=== PATIENT | female | born 1950 | race Caucasian/White ===

== ENCOUNTER 2017-07-16 08:20 | Emergency (ER) | payer OTHER ==
--- NOTE | 2017-07-16 08:25 | PDOC ---
History of Present Illness - General Stated Complaint: DIFFICULTY BREATHING History Source: Patient - History of Present Illness Initial Comments: 07/16/17 08:46 67 y.o. female with a PMH of NIDDM, HLD presents to our ED c/o acute onset of non-productive cough with pleuritic chest pain that sometime radiates to her L arm that started @ 2 a.m. this morning. Patient denies any shortness of breath , lightheadedness, palpitations or diaphoresis. Patient notes she also has alternating chills/feeling warm but denies any recorded fever, chills. Patient was evaluated by her PMD in April 2017 for a similar cough at which time she was started on an inhaler with some relief of her cough. NKDA Surgical: C/S Social: denies cigarettes, denies alcohol, denies recreational drugs Past History - Past Medical History Allergies/Adverse Reactions: Allergies Allergy/AdvReac Type Severity Reaction Status Date / Time No Known Allergies Allergy Verified 01/05/16 12:28 Home Medications: Ambulatory Orders Albuterol Sulfate Inhaler - [Ventolin Hfa Inhaler -] 1 - 2 inh PO Q6H 07/16/17 Calcium 250Mg/Vit-D 125 Units [Oscal 250 mg+D -] 1 combo PO BID 07/16/17 Codeine Phosphate/Guaifenesin [Guaifenesin-Codeine Syrup] 10 ml PO DAILY PRN 7 Days #1 liquid MDD 10 mL 07/16/17 Cyanocobalamin [Vitamin B12 -] 1,000 mcg PO DAILY 07/16/17 Doxepin HCl 100 mg PO HS 07/16/17 Escitalopram Oxalate [Lexapro -] 10 mg PO DAILY 07/16/17 Ferrous Sulfate 325 mg PO DAILY 07/16/17 Gabapentin 300 mg PO TID PRN 07/16/17 Guaifenesin 100 mg PO DAILY PRN #1 liquid 07/16/17 Lisinopril 10 mg PO DAILY 07/16/17 Meclizine HCl 12.5 mg PO HS 07/16/17 Metformin HCl [Metformin HCl ER] 1,000 mg PO BID 07/16/17 Montelukast Sodium [Singulair] 10 mg PO HS 07/16/17 Multivitamin [Daily Multiple Vitamin] 1 each PO DAILY 07/16/17 Pregabalin [Lyrica -] 50 mg PO TID 07/16/17 Ranitidine HCl [Zantac] 150 mg PO HS 07/16/17 Simvastatin 20 mg PO DAILY 07/16/17 Diabetes: Yes GI Disorders: Yes (dispepsia, GERD) HTN: Yes Hypercholesterolemia: Yes Psychiatric Problems: Yes (sleep disorder, anxiety, depression) - Immunization History Immunization Up to Date: Yes - Suicide/Smoking/Psychosocial Hx Smoking Status: No Smoking History: Never smoked Number of Cigarettes Smoked Daily: 0 Review of Systems - Review of Systems Constitutional: Yes: Chills. No: Fever HEENTM: No: Recent change in vision, Throat Pain Respiratory: Yes: Cough (non-productive). No: Shortness of Breath Cardiac (ROS): Yes: Chest Tightness. No: Lightheadedness, Palpitations ABD/GI: No: Constipated, Diarrhea, Nausea, Vomiting : No: Burning, Dysuria *Physical Exam - Physical Exam General Appearance: Yes: Nourished, Appropriately Dressed HEENT: positive: EOMI, CANDY Neck: positive: Trachea midline, Supple Respiratory/Chest: positive: Lungs Clear, Normal Breath Sounds Cardiovascular: positive: S1, S2. negative: Edema, JVD, Murmur Gastrointestinal/Abdominal: positive: Normal Bowel Sounds, Soft Musculoskeletal: negative: CVA Tenderness (R) Extremity: positive: Normal Capillary Refill, Normal Inspection Integumentary: positive: Normal Color, Dry, Warm Neurologic: positive: Fully Oriented, Alert ED Treatment Course - LABORATORY CBC & Chemistry Diagram: 07/16/17 08:45 07/16/17 08:45 Medical Decision Making - Medical Decision Making 07/16/17 08:50 67 y/o female with NIDDM and HLD who presents w/chest pain and cough. On presentation patient SpO2 98% on RA -- In light of patient's h/o DM + HLD, will obtain Troponin x1, CXR, EKG. Differential includes pneumonia vs. viral etiology -- less likely ACS, however patient has RF of NIDDM and HLD. 07/16/17 10:31 Troponin (-) x1. EKG shows NSR HR 70, no deviations, normal axis - no ischemic EKG. Heart Score 3. CXR shows no infiltrate, consolidation, cardiomegaly. Likely cough 2/2 viral etiology. Will discharge home with return precautions and strict instruction to see PMD on Tuesday *DC/Admit/Observation/Transfer Diagnosis at time of Disposition: Cough - Discharge Dispostion Disposition: HOME Condition at time of disposition: Good Admit: No - Prescriptions Prescriptions: Codeine Phosphate/Guaifenesin [Guaifenesin-Codeine Syrup] 10 ml PO DAILY PRN 7 Days #1 liquid MDD 10 mL PRN Reason: Cough Guaifenesin 100 mg PO DAILY PRN #1 liquid PRN Reason: Cough - Referrals - Patient Instructions Printed Discharge Instructions: How to Avoid a Cold or Flu Additional Instructions: You evaluated today for a cough and chest pain. All of your labs and chest x ray showed no concerning findings. We have sent a prescription to your pharmacy to help with your cough -- take the medication at night as needed. Please follow-up with your primary care doctor in the next 48 hours. Return to the Emergency Department for any new/worsening/concerning symptoms. Print Language: SWISS - Post Discharge Activity
--- NOTE | 2017-07-16 08:46 | PDOC ---
Attending Attestation - Resident Resident Name: BrandoMalaika - HPI HPI: 07/16/17 09:37 Pt presents to the ED complaining of pleuritic chest pain that began at 3:30 this morning. Patient has a week of cough that was worse last night. Now is complaining of L sided chest pain and upper back pain that is worse with cough, but is constant. Also complains of mild shortness of breath. - Physicial Exam PE: 07/16/17 09:55 Agree with resident exam. Heart has regular rate and rhythm with no murmurs, rubs or gallops. Lungs are clear. Patient is well appearing and in no acute distress. - Medical Decision Making 07/16/17 10:01 Pt presents to the ED complaining of pleuritic chest pain after coughing early this AM. Differential includes PNA, muscular chest pain, ACS. Will check CXR and labs including cardiac enzymes and reassess. EKg shows no evidence of acute ischemia.
[2017-07-16 09:05] LABS: BASO % 1.1 % (0-2.0); EOS % 10.5 % (0-4.5); HEMATOCRIT 38.7 % (32.4-45.2); LYMPH % 26.9 % (8-40); MCH 30.2 pg (25.7-33.7); MCHC 33.6 g/dl (32.0-36.0); MEAN CELL VOLUME 90.1 fl (80-96); MEAN PLT VOLUME 9.3 fl (7.5-11.1); MONO % 6.2 % (3.8-10.2); NEUT % 55.3 % (42.8-82.8); PLATELET COUNT 245 K/MM3 (134-434); RDW 13.4 % (11.6-15.6)
[2017-07-16 09:11] VITALS: BMI 26.4
[2017-07-16 09:33] LABS: ALBUMIN 3.6 g/dl (3.4-5.0); ANION GAP 9 (8-16); BILIRUBIN,TOTAL 0.3 mg/dL (0.2-1.0); BLOOD UREA NITROGEN 12 mg/dL (7-18); CALCIUM 8.8 mg/dL (8.5-10.1); CHLORIDE 104 mmol/L (98-107); CO2 26 mmol/L (21-32); CREATININE 0.6 mg/dL (0.55-1.02); GLUCOSE,RANDOM 166 mg/dL (74-106); MAGNESIUM 1.8 mg/dL (1.8-2.4); POTASSIUM 3.9 mmol/L (3.5-5.1); SGOT/AST 19 U/L (15-37); SGPT/ALT 28 U/L (12-78); SODIUM 139 mmol/L (136-145); TOT PROT 6.8 g/dl (6.4-8.2)
[2017-07-16 09:36] LABS: ALK PHOS 49 U/L (45-117); N-TERMINAL BNP 125.55 pg/ml (5-125)
[2017-07-16 11:22] VITALS: BP 113/73; PULSE 69; TEMP 97.9
--- NOTE | 2017-07-16 11:38 | EKG ---
Test Reason : Blood Pressure : / mmHG Vent. Rate : 070 BPM Atrial Rate : 070 BPM P-R Int : 144 ms QRS Dur : 086 ms QT Int : 394 ms P-R-T Axes : 054 004 041 degrees QTc Int : 425 ms NORMAL SINUS RHYTHM NORMAL ECG WHEN COMPARED WITH ECG OF 05-JAN-2016 14:05, NO SIGNIFICANT CHANGE WAS FOUND Confirmed by MD GAURAV, MARIELA ([id number]) on 07/16/2017 11:38:01 AM Referred By: Confirmed By:MARIELA NOLASCO MD
== END 2017-07-16 11:22 | disposition home or self-care (01) ==
LOC: JER 08:20
DX: R05 Cough (principal); I10 Essential (primary) hypertension; K21.9 Gastro-esophageal reflux disease without esophagitis; E78.00 Pure hypercholesterolemia, unspecified; F41.8 Other specified anxiety disorders
CPT/HCPCS: 36415; 71046-TC-FY; 80053; 83735; 83880; 84484; 85025; 93005; 93010; 99284-25

== ENCOUNTER 2018-07-24 09:23 | Emergency (ER) | payer OTHER ==
[2018-07-24 09:35] VITALS: TEMP 98.4; BMI 25.9
--- NOTE | 2018-07-24 10:01 | PDOC ---
History of Present Illness - General Chief Complaint: Lightheaded Stated Complaint: WEAKNESS / DIZZYNESS Time Seen by Provider: 07/24/18 10:01 - History of Present Illness Initial Comments: 07/24/18 10:01 Ms. Interiano is a 68 yo female w/ pmh of NIDDM, HLD who presents for evaluation of 3-4 day history of nausea with light-headed feeling as well as L arm pain. Patient further reports she started to have L sided upper abdominal pain. Of note, patient reports she had a colonoscopy 07/21. Patient currently reporting continuation of her L sided abdominal pain which she describes as crampy. Patient denies other symptoms at this time. The patient denies chest pain, shortness of breath, and headache. Denies fever, chills, vomit, diarrhea and constipation. Denies dysuria, frequency, urgency and hematuria. Past History - Past Medical History Allergies/Adverse Reactions: Allergies Allergy/AdvReac Type Severity Reaction Status Date / Time No Known Allergies Allergy Verified 01/05/16 12:28 Home Medications: Ambulatory Orders Albuterol Sulfate Inhaler - [Ventolin Hfa Inhaler -] 1 - 2 inh PO Q6H 07/16/17 Calcium 250Mg/Vit-D 125 Units [Oscal 250 mg+D -] 1 combo PO BID 07/16/17 Codeine Phosphate/Guaifenesin [Guaifenesin-Codeine Syrup] 10 ml PO DAILY PRN 7 Days #1 liquid MDD 10 mL 07/16/17 Cyanocobalamin [Vitamin B12 -] 1,000 mcg PO DAILY 07/16/17 Doxepin HCl 100 mg PO HS 07/16/17 Escitalopram Oxalate [Lexapro -] 10 mg PO DAILY 07/16/17 Ferrous Sulfate 325 mg PO DAILY 07/16/17 Gabapentin 300 mg PO TID PRN 07/16/17 Guaifenesin 100 mg PO DAILY PRN #1 liquid 07/16/17 Lisinopril 10 mg PO DAILY 07/16/17 Meclizine HCl 12.5 mg PO HS 07/16/17 Montelukast Sodium [Singulair] 10 mg PO HS 07/16/17 Multivitamin [Daily Multiple Vitamin] 1 each PO DAILY 07/16/17 Pregabalin [Lyrica -] 50 mg PO TID 07/16/17 Ranitidine HCl [Zantac] 150 mg PO HS 07/16/17 Simvastatin 20 mg PO DAILY 07/16/17 metFORMIN HCL [Metformin HCl ER] 1,000 mg PO BID 07/16/17 COPD: No Diabetes: Yes GI Disorders: Yes (dispepsia, GERD) HTN: Yes Hypercholesterolemia: Yes Psychiatric Problems: Yes (sleep disorder, anxiety, depression) - Immunization History Immunization Up to Date: Yes - Suicide/Smoking/Psychosocial Hx Smoking Status: No Smoking History: Never smoked Have you smoked in the past 12 months: No Number of Cigarettes Smoked Daily: 0 Information on smoking cessation initiated: No Hx Alcohol Use: No Drug/Substance Use Hx: No Substance Use Type: None Review of Systems - Review of Systems Comments:: 07/24/18 10:01 GENERAL/CONSTITUTIONAL: No fever or chills. No weakness. HEAD, EYES, EARS, NOSE AND THROAT: No change in vision. No ear pain or discharge. No sore throat. CARDIOVASCULAR: No chest pain or shortness of breath RESPIRATORY: No cough, wheezing, or hemoptysis. GASTROINTESTINAL: +Nausea w/out vomiting, diarrhea or constipation. GENITOURINARY: No dysuria, frequency, or change in urination. MUSCULOSKELETAL: No joint or muscle swelling or pain. No neck or back pain. SKIN: No rash NEUROLOGIC: +Dizzyness as described. No headache, vertigo, loss of consciousness , or change in strength/sensation. ENDOCRINE: No increased thirst. No abnormal weight change HEMATOLOGIC/LYMPHATIC: No anemia, easy bleeding, or history of blood clots. ALLERGIC/IMMUNOLOGIC: No hives or skin allergy. *Physical Exam - Vital Signs Last Vital Signs Temp Pulse Resp BP Pulse Ox 98.4 F 89 18 136/69 98 07/24/18 09:30 07/24/18 09:30 07/24/18 09:30 07/24/18 09:30 07/24/18 09:30 - Physical Exam Comments: 07/24/18 10:01 GENERAL: Awake, alert, and fully oriented, in no acute distress HEAD: No signs of trauma, normocephalic, atraumatic EYES: PERRLA, EOMI, sclera anicteric, conjunctiva clear ENT: Auricles normal inspection, hearing grossly normal, nares patent, oropharynx clear without exudates. Moist mucosa NECK: Normal ROM, supple, no lymphadenopathy, JVD, or masses LUNGS: No distress, speaks full sentences, clear to auscultation bilaterally HEART: Regular rate and rhythm, normal S1 and S2, no murmurs, rubs or gallops, peripheral pulses normal and equal bilaterally. ABDOMEN: +LLQ abdominal pain, soft, normoactive bowel sounds. No guarding, no rebound. No masses EXTREMITIES: Normal inspection, Normal range of motion, no edema. No clubbing or cyanosis. NEUROLOGICAL: Cranial nerves II through XII grossly intact. Normal speech, normal gait, no focal sensorimotor deficits SKIN: Warm, Dry, normal turgor, no rashes or lesions noted. Moderate Sedation - Procedure Monitoring Vital Signs: Procedure Monitoring Vital Signs Temperature 98.4 F 07/24/18 09:30 Pulse Rate 89 07/24/18 09:30 Respiratory Rate 18 07/24/18 09:30 Blood Pressure 136/69 07/24/18 09:30 O2 Sat by Pulse Oximetry (%) 98 07/24/18 09:30 ED Treatment Course - LABORATORY CBC & Chemistry Diagram: 07/24/18 11:05 07/24/18 11:05 Medical Decision Making - Medical Decision Making 07/24/18 16:29 Ms. Interiano is a 68 yo female w/ pmh as described who presents for evaluation of symptoms concerning for cardiac problems vs. post colonoscopy complications vs. electrolyte abnormality. Patient workup started accordingly with cardiac labs, CT Abdomen, EKG, CBC/CMP. 07/24/18 17:11 EKG negative, labs completely wnl as below. CT negative for acute pathology, noted mild right renal cortical scarring with diffuse hepatic steatosis with moderate colonic fecal retention. Also noted was a 3 mm right middle lobe pulmonary nodule. Patient communicated results and given CT read. Discharging to home for further outpatient follow-up. Laboratory Results - last 24 hr 07/24/18 07/24/18 07/24/18 11:05 11:05 11:05 WBC 8.1 RBC 4.44 Hgb 13.8 Hct 40.3 MCV 90.7 MCH 31.1 MCHC 34.3 RDW 13.6 Plt Count 233 MPV 10.1 Absolute Neuts (auto) 4.8 Neutrophils % 59.4 Lymphocytes % 31.6 Monocytes % 5.9 Eosinophils % 2.6 Basophils % 0.5 Nucleated RBC % 0 Sodium 140 Potassium 3.8 Chloride 103 Carbon Dioxide 28 Anion Gap 9 BUN 10 Creatinine 0.7 Creat Clearance w eGFR > 60 Random Glucose 86 Calcium 9.6 Total Bilirubin 0.4 AST 26 ALT 44 Alkaline Phosphatase 55 Creatine Kinase 93 Troponin I < 0.02 Total Protein 7.9 Albumin 4.2 Urine Color Ltyellow Urine Appearance Clear Urine pH 7.0 Ur Specific [place] 1.012 Urine Protein Negative Urine Glucose (UA) Negative Urine Ketones Negative Urine Blood Negative Urine Nitrite Negative Urine Bilirubin Negative Urine Urobilinogen Negative Ur Leukocyte Esterase Negative *DC/Admit/Observation/Transfer Diagnosis at time of Disposition: Abdominal pain Qualifiers: Abdominal location: unspecified location Qualified Code(s): R10.9 - Unspecified abdominal pain - Discharge Dispostion Disposition: HOME Condition at time of disposition: Stable - Referrals Referrals: Melvin Valdivia DO [Staff Physician] - [facility] [place] Group] - Patient Instructions Printed Discharge Instructions: DI for Constipation Additional Instructions: Fuiste evaluado hoy en la julissa de emergencias por tu dolor. Realizamos emily evaluacin de laboratorio y emily tomografa computarizada que resultaron negativas para cualquier proceso emergente. Nancy le hemos proporcionado emily copia de la lectura CT. Por favor, gaye un seguimiento con el proveedor de atencin primaria en 1-2 adams para emily evaluacin adicional. Puede utilizar la informacin adjunta para establecer un proveedor de atencin primaria si actualmente no tiene manju. Nancy se observ que estreido. Hemos proporcionado informacin para gastroenterologa que nancy puede utilizar para establecer la atencin segn sea necesario. Regrese a la julissa de emergencias si tiene fiebre, escalofros, dolor o aumento de dolor u otros sntomas You were evaluated today in the Emergency Room for your pain. We performed laboratory evaluation and CT scan which were both negative for any emergent process. We have also provided you with a copy of the CT read. Please follow-up with primary care provider in 1-2 days for further evaluation. You may use attached information to establish a primary care provider if you do not currently have one. You were also noted to be constipated. We have provided information for gastroenterology which you may also use to establish care as needed. Return to ER if any fever, chills, return or increase of pain, or other concerning symptoms. Print Language: WOLOF - Post Discharge Activity
[2018-07-24] MEDS ORDERED: ACETAMINOPHEN 1000 MG/100 ML VIAL (NON FORMULARY) IVPB ONE (10:41)
--- NOTE | 2018-07-24 10:49 | PDOC ---
Attending Attestation - Resident Resident Name: ErlinsabinolornaDanielSaqib - ED Attending Attestation I have performed the following: I have examined & evaluated the patient, The case was reviewed & discussed with the resident, I agree w/resident's findings & plan - HPI HPI: 07/24/18 11:09 68 yo female w/ PMHx of NIDDM, HLD who presents for evaluation of 3-4 day history of nausea, lightheadedness and left sided AP as well as L arm pain. Patient further reports she started to have L sided upper abdominal pain that has migrated down to LLQ. Of note, patient reports she had a colonoscopy 07/21, no known bleeding or complications.. Patient currently reporting continuation of her L sided abdominal pain which she describes as crampy and pressure like. no BM changes, no diarrhea or constipation, no fever.. - Physicial Exam PE: 07/24/18 11:11 NAD, well appearing, PERRL, EOMI, MMM, nl conjunctiva, anicteric; neck supple. lungs clear, RRR, abdomen soft, normoactive BS, +LLQ tenderness, no rebound or guarding. no CVAT or flank tenderness. CARNES x4, no focal neuro deficits. No peripheral edema. normal color for ethnicity, WWP. - Medical Decision Making 07/24/18 11:11 See HPI for details DDx abdominal pain: Renal colic, biliary colic, metabolic/electrolyte derangements. GERD, PUD, esophageal spasm, pancreatitis, hepatitis, constipation , colitis, gastroenteritis, UTI, pyelonephritis, ileus, medication side effect, hernia, appendicitis, diverticulitis; post procedural side effect. Vital signs reviewed, wnl. Prior notes reviewed, including admissions, discharges and consultations. laboratory results and imaging reviewed, basic labs and lytes wnl, CXR_no acute pathology Cardiac panel_negative x1, unlikely cardiac with duration of sx and clinical timeline/sx. chest pain free, mostly abdominal. EKG normal sinus rhythm, no interval abnormalities, narrow QRS, ST and T wave segments and morphology normal. Nonspecific T wave abnormalities ED course - doubt perforation, with recent h/o colonoscopy. more LLQ tenderness elicited, no BM or infectious changes. CT a/p to eval for diverticulitis Results_ Dispo: Pt informed of my clinical impression, treatment recommendations and disposition plan. All questions answered to patient's satisfaction and expressed understanding and comfort with this. Reasons for returning to the ED sooner discussed with the patient otherwise, follow up with primary care physician. At the time of discharge, the patient is alert, clinically improved, tolerating po and verbalizes understanding of instructions. Patient does not suffer from an acute life-threatening medical condition at this time she is safe for outpatient follow-up. 07/24/18 13:02 Heart Score/ECG Review #1 ECG reviewed & interpreted by me at: 11:30 General ECG Interpretation: Sinus Rhythm Compared to previous ECG there are: No significant change 07/24/18 12:45 EKG normal sinus rhythm at 69 bpm, no interval abnormalities, narrow QRS, ST and T wave segments and morphology normal. Nonspecific T wave abnormalities 07/24/18 14:00
[2018-07-24] MEDS ORDERED: ACETAMINOPHEN INJECTION 100 ML IVPB ONE (11:00)
[2018-07-24 12:15] LABS: BASO % 0.5 % (0-2.0); EOS % 2.6 % (0-4.5); HEMATOCRIT 40.3 % (32.4-45.2); HEMOGLOBIN 13.8 GM/dL (10.7-15.3); LYMPH % 31.6 % (8-40); MCH 31.1 pg (25.7-33.7); MCHC 34.3 g/dl (32.0-36.0); MEAN CELL VOLUME 90.7 fl (80-96); MEAN PLT VOLUME 10.1 fl (7.5-11.1); MONO % 5.9 % (3.8-10.2); NEUT % 59.4 % (42.8-82.8); PLATELET COUNT 233 K/MM3 (134-434); RBC 4.44 M/mm3 (3.60-5.2); RDW 13.6 % (11.6-15.6); WHITE BLOOD COUNT 8.1 K/mm3 (4.0-10.0)
[2018-07-24 12:36] LABS: ALBUMIN 4.2 g/dl (3.4-5.0); ALK PHOS 55 U/L (45-117); ANION GAP 9 MMOL/L (8-16); BILIRUBIN,TOTAL 0.4 mg/dL (0.2-1); BLOOD UREA NITROGEN 10 mg/dL (7-18); CALCIUM 9.6 mg/dL (8.5-10.1); CHLORIDE 103 mmol/L (98-107); CO2 28 mmol/L (21-32); CREATININE 0.7 mg/dL (0.55-1.3); GLUCOSE,RANDOM 86 mg/dL (74-106); POTASSIUM 3.8 mmol/L (3.5-5.1); SGOT/AST 26 U/L (15-37); SGPT/ALT 44 U/L (13-61); SODIUM 140 mmol/L (136-145); TOT PROT 7.9 g/dl (6.4-8.2)
[2018-07-24 13:01] LABS: URINE APPEARANCE CLEAR; URINE BILIRUBIN NEGATIVE (<2.0 mg/dL); URINE COLOR LTYELLOW; URINE GLUCOSE (UA) NEGATIVE (NEGATIVE); URINE KETONE NEGATIVE (NEGATIVE); URINE LEUK ESTERASE NEGATIVE (NEGATIVE); URINE NITRITE NEGATIVE (NEGATIVE); URINE PROTEIN NEGATIVE (NEGATIVE); URINE UROBILINOGEN NEGATIVE mg/dL (0.2-1.0)
[2018-07-24 17:20] VITALS: BP 104/65; PULSE 78
--- NOTE | 2018-07-24 23:46 | EKG ---
Test Reason : Blood Pressure : / mmHG Vent. Rate : 069 BPM Atrial Rate : 069 BPM P-R Int : 146 ms QRS Dur : 090 ms QT Int : 400 ms P-R-T Axes : 050 006 052 degrees QTc Int : 428 ms NORMAL SINUS RHYTHM NORMAL ECG WHEN COMPARED WITH ECG OF 16-JUL-2017 09:02, NO SIGNIFICANT CHANGE WAS FOUND Confirmed by LUCY MART MD ([id number]) on 07/24/2018 11:46:11 PM Referred By: Confirmed By:LUCY MART MD
== END 2018-07-24 17:30 | disposition home or self-care (01) ==
LOC: JER 09:23
PROC: 3E033NZ Introduction of Analgesics, Hypnotics, Sedatives into Peripheral Vein, Percutaneous Approach (ICD-10-PCS; principal; 2018-07-24)
DX: R10.32 Left lower quadrant pain (principal); Z98.890 Other specified postprocedural states
CPT/HCPCS: 36415; 74177-TC; 80053; 81003; 82550; 84484; 85025; 87086; 93005; 93010; 96374; 99283-25; J0131